=== PATIENT | male | born 1965 | race Caucasian/White ===

== ENCOUNTER 2018-07-10 19:44 | Emergency (ER) | payer OTHER ==
[2018-07-10 20:13] LABS: BASOPHILS % (AUTO) 0.6 % (0.0-5.0); EOSINOPHILS % (AUTO) 1.3 % (0.0-8.0); HEMATOCRIT 44.7 % (42-54); LYMPHOCYTES % (AUTO) 26.8 % (21.0-51.0); MEAN CORPUSCULAR HEMOGLOBIN 31.8 pg (27.0-33.0); MEAN CORPUSCULAR HGB CONC 34.2 g/dL (32.0-36.0); NEUTROPHILS % (AUTO) 63.3 % (40.0-77.0); PLATELET COUNT (AUTO) 145 K/uL (130-400); RED CELL DISTRIBUTION WIDTH 13.7 % (11.0-15.5); WHITE BLOOD COUNT (AUTO) 8.4 K/uL (4.8-10.8)
[2018-07-10 20:36] LABS: CREATININE 1.2 mg/dL (0.5-1.5); POTASSIUM 3.9 mmol/L (3.5-5.1)
[2018-07-10 20:45] LABS: ALBUMIN 3.6 g/dL (3.5-5.0); BILIRUBIN,TOTAL 0.2 mg/dL (0.2-1.0); TOTAL PROTEIN, SERUM 7.3 g/dL (6.0-8.3)
[2018-07-10] MEDS ORDERED: CEFTRIAXONE SODIUM 1 GM ONE (21:57)
[2018-07-10] MEDS ORDERED: ACETAMINOPHEN EXTRA STRENGTH 500 MG TABLET ONE (21:57)
[2018-07-10] MEDS ORDERED: AZITHROMYCIN 250 MG TABLET PO ONE (21:57)
== END 2018-07-10 22:47 | disposition home or self-care (01) ==
LOC: EDH 19:44
DX: J18.9 Pneumonia, unspecified organism (principal); R07.1 Chest pain on breathing; Z87.891 Personal history of nicotine dependence
CPT/HCPCS: 36415; 71046; 80053; 82550; 84484; 85025; 87804 ×2; 93005; 96374; 99284; J0696

== ENCOUNTER 2021-01-11 10:50 | Emergency (ER) | payer OTHER ==
[~2021-01-11] VITALS: Ht 190.5 cm; Wt 95.3 kg
[2021-01-11 11:14] VITALS: BP 129/86
[2021-01-11] MEDS ORDERED: LIDOCAINE HCL-MPF 1% 2ML VIAL ONE (11:57)
[2021-01-11] MEDS ORDERED: LIDOCAINE HCL 1% 20 ML VIAL ONE (12:00)
[2021-01-11] MEDS ORDERED: CEPH500B PO (12:43)
[2021-01-11] MEDS ORDERED: TETANUS/DIPHTHERIA TOXOID [ADULT] 0.5 ML VIAL IM ONE ×2 (12:43→13:00)
[2021-01-11] MEDS ORDERED: NAPR500T6 PO (12:43)
== END 2021-01-11 13:16 | disposition home or self-care (01) ==
LOC: EDH 10:50
DX: S61.211A Laceration without foreign body of left index finger without damage to nail, initial encounter (principal); W23.0XXA Caught, crushed, jammed, or pinched between moving objects, initial encounter; Y93.89 Activity, other specified; Y92.89 Other specified places as the place of occurrence of the external cause; Y99.0 Civilian activity done for income or pay
CPT/HCPCS: 12001; 73130; 90471; 90714; 99283; J3490